=== PATIENT | female | born 1980 | race Caucasian/White ===

== ENCOUNTER 2016-07-18 13:38 | Emergency (ER) | payer MEDICARE, OTHER ==
[2016-07-18 17:55] LABS: HEMOGLOBIN 13.4 gm/dl (12.3-15.3); RED BLOOD COUNT 4.44 M/UL (4.00-5.10)
[2016-07-18 18:12] LABS: BUN/CREATININE RATIO 18 (0-10)
== END 2016-07-18 21:55 | disposition home or self-care (01) ==
LOC: ER1 13:38
PROVIDERS: Family Medicine
DX: R07.9 Chest pain, unspecified (principal); R05 Cough; I10 Essential (primary) hypertension; E78.5 Hyperlipidemia, unspecified; Z88.0 Allergy status to penicillin; Z79.899 Other long term (current) drug therapy
CPT/HCPCS: 36415; 71020; 80053; 82550; 82553; 83874; 84484; 85025; 85379; 93005; 99285

== ENCOUNTER → 2016-08-09 | Outpatient (CLI) | payer MEDICARE, OTHER | LOC: SLEEP 21:30 | DX: G47.33 Obstructive sleep apnea (adult) (pediatric) (principal) | CPT/HCPCS: 95810 ==

== ENCOUNTER → 2016-08-22 | Outpatient (CLI) | payer MEDICARE, OTHER | LOC: KOH-I 09:00 | DX: Z13.820 Encounter for screening for osteoporosis (principal); Z79.3 Long term (current) use of hormonal contraceptives | CPT/HCPCS: 77080 ==

== ENCOUNTER 2016-11-10 15:03 | Emergency (ER) | payer MEDICARE, OTHER | END 2016-11-10 17:30 | disposition home or self-care (01) | LOC: ER1 15:03 | DX: S46.912A Strain of unspecified muscle, fascia and tendon at shoulder and upper arm level, left arm, initial encounter (principal); R07.9 Chest pain, unspecified; Z88.0 Allergy status to penicillin; W19.XXXA Unspecified fall, initial encounter | CPT/HCPCS: 73030; 93005; 99284 ==

== ENCOUNTER → 2016-11-10 | Outpatient (CLI) | payer MEDICARE, OTHER | LOC: RAD 11:06 | DX: S46.802A Unspecified injury of other muscles, fascia and tendons at shoulder and upper arm level, left arm, initial encounter (principal) | CPT/HCPCS: 73030 ==

== ENCOUNTER 2016-11-11 13:05 | Emergency (ER) | payer MEDICARE, OTHER ==
[2016-11-11 14:11] LABS: HEMOGLOBIN 13.4 gm/dl (12.3-15.3); RED BLOOD COUNT 4.91 M/UL (4.00-5.10); WHITE BLOOD COUNT 9.2 K/UL (4.5-11.0)
[2016-11-11 14:29] LABS: BUN/CREATININE RATIO 10 (0-10)
== END 2016-11-11 18:15 | disposition home or self-care (01) ==
LOC: ER1 13:05
PROVIDERS: Student in an Organized Health Care Education/Training Program
DX: R07.89 Other chest pain (principal); I10 Essential (primary) hypertension; E66.9 Obesity, unspecified; Z88.0 Allergy status to penicillin; Z91.030 Bee allergy status
CPT/HCPCS: 36415; 71010; 80053; 82550; 82553; 83874; 84484; 84703; 85025; 93005; 99285